=== PATIENT | female | born 1955 | race Caucasian/White ===

== ENCOUNTER 2018-05-30 18:26 | Emergency (ER) | payer OTHER, MEDICAID, SELFPAY ==
[2018-05-30 18:44] VITALS: BP 175/87; PULSE 98; RESP 15; TEMP 36.8; O2SAT 99; BMI 29.7
--- NOTE | 2018-05-30 18:44 | DI.RAD.S_ITS ---
PROCEDURE: XR ACUTE ABDOMEN SERIES INDICATIONS: Abdominal pain TECHNIQUE: One view chest and two views of the abdomen were acquired. COMPARISON: None. FINDINGS: Surgical changes and devices: Right upper quadrant surgical clips. Chest: Lungs are clear. Heart size is normal. No pleural effusions. No pneumoperitoneum. Abdomen: Large amount of stool. No bowel obstruction.. No suspicious calcifications. Visualized solid organ contours appear normal. Bones: No suspicious bony lesions. Lumbar degenerative disc disease. Mild bilateral hip joint degeneration. IMPRESSION: No bowel obstruction. Large amount of stool suggestive of constipation. Dictated by: Selvin Askew M.D. on 05/30/2018 at 20:35 Approved by: Selvin Askew M.D. on 05/30/2018 at 20:37
--- NOTE | 2018-05-30 19:20 | PC.NURSE ---
Pt states she has had low back pain on and off for the past 2-3 months. Unknown if she injured herself. She states she thought she had kidney stones. Denies any urinary symptoms. States she normally has bowel movements daily, but now it is down to once every 3 days. She is a type 2 diabetic and states her sugars have been high.
[2018-05-30] MEDS: KETOROLAC 15 MG/ML VIAL IV (19:28)
[2018-05-30] MEDS: SODIUM CHLORIDE 0.9% 1,000 ML 1000 ML IV ×2 (19:28→21:32)
[2018-05-30 19:33] LABS: Alanine Aminotransferase 36 IU/L (9-52); Albumin 4.2 g/dL (3.5-5.0); Albumin Globulin Ratio 1.8 (1.0-2.8); Alkaline Phosphatase 76 U/L (38-126); Aspartate Aminotransferase 25 IU/L (14-36); BUN Creatinine Ratio 26.3 (6-22); Bilirubin Total 0.4 mg/dL (0.2-1.3); Blood Urea Nitrogen 21 mg/dL (7-17); Calcium 9.7 mg/dL (8.4-10.2); Carbon Dioxide 25 mmol/L (22-32); Chloride 99 mmol/L (98-107); Estimated Glomerular Filt Rate > 60.0 mL/min (>60); Globulin 2.4 g/dL (1.7-4.1); Glucose 411 mg/dL (80-110); HEMOLYSIS 29 (0-50); Lipase 416 U/L (23-300); Sodium 136 mmol/L (137-145); Total Protein 6.6 g/dL (6.3-8.2)
[2018-05-30 20:22] LABS: Hematocrit 38.7 % (36-46); Hemoglobin 13.1 g/dL (12.0-16.0); Mean Corpuscular HGB Conc 33.9 % (30-36); Mean Corpuscular Hemoglobin 29.2 PG (26-34); Mean Corpuscular Volume 86.2 fL (80-100); Platelet Count 251 X10^3/uL (150-400); Red Blood Cell Count 4.49 X10^6/uL (4.0-5.2); Red Cell Distribution Width 13.2 % (11.6-14.8); White Blood Cell Count 8.6 X10^3/uL (4.5-11.0)
[2018-05-30 20:24] LABS: Add Manual Diff / Slide Review YES
[2018-05-30 20:32] VITALS: BP 116/72; PULSE 78; RESP 18; TEMP 36.4; O2SAT 100
[2018-05-30] MEDS: INSULIN REGULAR 100 UNIT/ML 3 ML VIAL SUBCUT (20:51)
--- NOTE | 2018-05-30 21:11 | DI.CT.S_ITS ---
PROCEDURE: CT KIDNEY URETER BLADDER (KUB) INDICATIONS: severe flank pain, hematuria TECHNIQUE: Noncontrast 5 mm thick sections acquired from the diaphragms to the symphysis. 5 mm thick coronal and sagittal reformats were then performed. For radiation dose reduction, the following was used: automated exposure control, adjustment of mA and/or kV according to patient size. COMPARISON: None. FINDINGS: Image quality: Excellent. Lung bases: Lung bases are clear. Heart size is normal. Urinary system: Both kidneys are normal in size. Subcentimeter right posterior cortical lesion, technically nonspecific in the absence of IV contrast. No kidney stones. No hydronephrosis or perinephric fat stranding. There are several bilateral pelvic phleboliths are seen in the region of the distal ureters however no definite intraluminal calcification is seen. Both ureters appear non-dilated throughout their expected courses. Bladder wall thickness is normal; no calcified bladder stones. Other solid organs: Liver is normal in size. Gallbladder surgically absent. Pancreas is normal in contours. Spleen is normal in size. No adrenal nodules. Peritoneum and bowel: Unenhanced bowel loops demonstrate normal wall thickness and caliber. No free fluid or air. The rectum is grossly unremarkable. Appendix is normal. Nodes and vessels: No retroperitoneal or mesenteric adenopathy by size criteria. Aorta and inferior vena cava are normal in caliber. Abdominal wall: No ventral hernias. Pelvis: No free pelvic fluid. No inguinal hernias or adenopathy. Bones: No suspicious bony lesions. No vertebral body compression fractures. IMPRESSION: No urolithiasis or evidence of urinary obstruction. No acute abnormality identified. Normal appendix. Dictated by: Selvin Askew M.D. on 05/30/2018 at 21:31 Approved by: Selvin Askew M.D. on 05/30/2018 at 21:36
--- NOTE | 2018-05-30 21:40 | ED_ITS ---
HPI - Female Genitourinary General Chief complaint: Urogenital-Female Stated complaint: THINKS SHE HAS KIDNEY STONES Time Seen by Provider: 05/30/18 18:38 Source: patient Mode of arrival: ambulatory Limitations: no limitations History of Present Illness HPI Narrative: Patient presents to the emergency department today with a chief complaint of right flank pain for the past month. She states it is worse when she moves and improves with rest. She denies any specific injury. She has had no fever or chills. She denies any rash nor urinary complaints such as dysuria , frequency or urgency. She denies nausea or vomiting but does state she has had decreased bowel movements for the past few days Onset (ago): month(s) Female Urogenital Radiation: R Flank Severity: moderate Related Data Allergies Allergy/AdvReac Type Severity Reaction Status Date / Time No Known Drug Allergies Allergy Verified 05/30/18 18:44 Review of Systems Review of Systems All systems reviewed & are unremarkable except as noted in HPI and below Constitutional Denies chills, Denies fever(s), Denies lethargy and Denies weakness Eyes Denies change in vision, Denies eye discharge, Denies irritation and Denies loss of vision ENT Ears, Nose, Mouth, and Throat: Denies change in voice, Denies neck pain and Denies sore throat Cardiovascular Denies chest pain, Denies irregular heart rhythm, Denies lightheadedness, Denies palpitations, Denies dyspnea, Denies dyspnea on exertion and Denies orthopnea Respiratory Denies cough, Denies dyspnea, Denies dyspnea on exertion and Denies wheezing Gastrointestinal Gastrointestinal: Denies abdominal pain, Denies change in bowel habits, Denies diarrhea, Denies nausea and Denies vomiting Genitourinary Denies hematuria, Denies flank pain, Denies urinary incontinence and Denies urinary urgency Musculoskeletal Denies neck pain Integumentary/Breasts Denies pruritus, Denies erythema, Denies rash and Denies wounds Neurologic Denies confusion, Denies loss of vision and Denies weakness Psychiatric Denies anxiety, Denies confusion, Denies depression, Denies homicidal ideation and Denies suicidal ideation Endocrine Denies palpitations Hematologic/Lymphatic Denies easy bruising Allergic/Immunologic Denies wheezing PFSH Social History Smoking Status: Former smoker Exam Initial Vital Signs Initial Vital Signs: Vital Signs Temperature 98.2 F 05/30/18 18:44 Pulse Rate 98 H 05/30/18 18:44 Respiratory Rate 15 05/30/18 18:44 Blood Pressure 175/87 H 05/30/18 18:44 Pulse Oximetry 99 05/30/18 18:44 Course Orders Ordered: ED Orders 05/30/18 18:44 XR acute abdomen series Stat 05/30/18 19:14 Comprehensive Metabolic Panel Stat Lipase Stat 05/30/18 20:10 Complete Blood Count AUTO DIFF Stat 05/30/18 21:11 CT kidney ureter bladder (KUB) Stat Discontinued Medications Sodium Chloride (Normal Saline 0.9%) 1,000 mls @ 1,000 mls/hr IV BOLUS ONE Stop: 05/30/18 19:43 Last Infusion: 05/30/18 21:11 Dose: 0 mls/hr Admin: 05/30/18 19:28 Dose: 1,000 mls/hr Sodium Chloride (Normal Saline 0.9%) 1,000 mls @ 1,000 mls/hr IV BOLUS ONE Stop: 05/30/18 21:44 Last Infusion: 05/30/18 22:47 Dose: 0 mls/hr Admin: 05/30/18 21:32 Dose: 1,000 mls/hr Insulin Human Regular (Humulin R) 5 unit SUBCUT NOW ONE Stop: 05/30/18 20:46 Last Admin: 05/30/18 20:51 Dose: 5 unit Ketorolac Tromethamine (Toradol) 15 mg IV NOW ONE Stop: 05/30/18 18:46 Last Admin: 05/30/18 19:28 Dose: 15 mg Vital Signs - 8 hr 05/30/18 18:44 05/30/18 20:32 05/30/18 21:51 Temperature 98.2 F 97.6 F Pulse Rate 98 H 78 75 Respiratory Rate 15 18 16 Blood Pressure 175/87 H Blood Pressure [Right Arm] 116/72 132/76 H Pulse Oximetry 99 100 97 05/30/18 22:30 Temperature 98.3 F Pulse Rate 75 Respiratory Rate 20 Blood Pressure Blood Pressure [Right Arm] 115/96 H Pulse Oximetry 97 MDM - Female Genitourinary Differential Diagnosis Likely urinary tract infection, cervicitis and vaginitis Medical Records Attestation: I reviewed the patient's medical records. Lab Data Result diagrams: 05/30/18 20:10 05/30/18 19:14 Lab Results 05/30/18 05/30/18 Range/Units 19:14 20:10 WBC 8.6 (4.5-11.0) X10^3/uL RBC 4.49 (4.0-5.2) X10^6/uL Hgb 13.1 (12.0-16.0) g/dL Hct 38.7 (36-46) % MCV 86.2 (80-100) fL MCH 29.2 (26-34) PG MCHC 33.9 (30-36) % RDW 13.2 (11.6-14.8) % Plt Count 251 (150-400) X10^3/uL Neut % (Auto) Not Reportable Lymph % (Auto) Not Reportable Andrew % (Auto) Not Reportable Eos % (Auto) Not Reportable Baso % (Auto) Not Reportable Total Counted 100 Seg Neutrophils % 42.0 (38-70) % Lymphocytes % (Manual) 49.0 H (25-45) % Monocytes % (Manual) 7.0 (2-11) % Eosinophils % (Manual) 1.0 L (2-4) % Basophils % (Manual) 1.0 (0-1) % Neutrophils # (Manual) 3612 (2423-5584) /uL RBC Morphology Normal morphology Sodium 136 L (137-145) mmol/L Potassium 4.0 (3.4-5.1) mmol/L Chloride 99 (98-107) mmol/L Carbon Dioxide 25 (22-32) mmol/L BUN 21 H (7-17) mg/dL Creatinine 0.80 (0.52-1.04) mg/dL Estimated GFR > 60.0 (>60) mL/min BUN/Creatinine Ratio 26.3 H (6-22) Glucose 411 H (80-110) mg/dL Calcium 9.7 (8.4-10.2) mg/dL Total Bilirubin 0.4 (0.2-1.3) mg/dL AST 25 (14-36) IU/L ALT 36 (9-52) IU/L Alkaline Phosphatase 76 (38-126) U/L Total Protein 6.6 (6.3-8.2) g/dL Albumin 4.2 (3.5-5.0) g/dL Globulin 2.4 (1.7-4.1) g/dL Albumin/Globulin Ratio 1.8 (1.0-2.8) Lipase 416 H (23-300) U/L Imaging Data CT scan - abdomen: Radiologist's impression: PROCEDURE: CT KIDNEY URETER BLADDER (KUB) INDICATIONS: severe flank pain, hematuria TECHNIQUE: Noncontrast 5 mm thick sections acquired from the diaphragms to the symphysis. 5 mm thick coronal and sagittal reformats were then performed. For radiation dose reduction, the following was used: automated exposure control, adjustment of mA and/or kV according to patient size. COMPARISON: None. FINDINGS: Image quality: Excellent. Lung bases: Lung bases are clear. Heart size is normal. Urinary system: Both kidneys are normal in size. Subcentimeter right posterior cortical lesion, technically nonspecific in the absence of IV contrast. No kidney stones. No hydronephrosis or perinephric fat stranding. There are several bilateral pelvic phleboliths are seen in the region of the distal ureters however no definite intraluminal calcification is seen. Both ureters appear non-dilated throughout their expected courses. Bladder wall thickness is normal; no calcified bladder stones. Other solid organs: Liver is normal in size. Gallbladder surgically absent. Pancreas is normal in contours. Spleen is normal in size. No adrenal nodules. Peritoneum and bowel: Unenhanced bowel loops demonstrate normal wall thickness and caliber. No free fluid or air. The rectum is grossly unremarkable. Appendix is normal. Nodes and vessels: No retroperitoneal or mesenteric adenopathy by size criteria. Aorta and inferior vena cava are normal in caliber. Abdominal wall: No ventral hernias. Pelvis: No free pelvic fluid. No inguinal hernias or adenopathy. Bones: No suspicious bony lesions. No vertebral body compression fractures. IMPRESSION: No urolithiasis or evidence of urinary obstruction. No acute abnormality identified. Normal appendix. Dictated by: Selvin Askew M.D. on 05/30/2018 at 21:31 Approved by: Selvin Askew M.D. on 05/30/2018 at 21:36 Chest x-ray: Attestation: I personally reviewed and interpreted this imaging study as follows: My impression: large amount of stool Radiologist's impression: PROCEDURE: XR ACUTE ABDOMEN SERIES INDICATIONS: Abdominal pain TECHNIQUE: One view chest and two views of the abdomen were acquired. COMPARISON: None. FINDINGS: Surgical changes and devices: Right upper quadrant surgical clips. Chest: Lungs are clear. Heart size is normal. No pleural effusions. No pneumoperitoneum. Abdomen: Large amount of stool. No bowel obstruction.. No suspicious calcifications. Visualized solid organ contours appear normal. Bones: No suspicious bony lesions. Lumbar degenerative disc disease. Mild bilateral hip joint degeneration. IMPRESSION: No bowel obstruction. Large amount of stool suggestive of constipation. Dictated by: Selvin Askew M.D. on 05/30/2018 at 20:35 Approved by: Selvin Askew M.D. on 05/30/2018 at 20:37 Discharge Plan Departure Patient Disposition: Home, Self-Care Clinical Impression: Acute flank pain, Constipation, Acute hyperglycemia Discharge Date/Time: 05/30/18 22:47 Interventions: ED Discharge Assessment Last Done: 05/30/18 22:47 Instructions: DI for Flank Pain Activity Restrictions/Additional Instructions: *You have been diagnosed with [ chronic flank pain, constipation ] *What to do: *Take medications as directed: Please double your Glyburide from 2.5mg PO daily to 5mg PO daily *Follow up with your primary care provider in 2-3 days, call for an appointment. Let them know you were seen in the Emergency Department and that we ask that you be seen in follow up *Return to ER if you should have any new, worsening or concerning symptoms , such as [worsening pain, fever over 101 F chills, vomiting, or any other bothersome symptoms] Referrals: Ariel Lopez MD [Primary Care Provider] -
[2018-05-30 21:45] LABS: Neutrophils Absolute Manual 3612 /uL (3000-5900); RBC Morphology Normal Morphology; Total Cells Counted 100
[2018-05-30 21:51] VITALS: BP 132/76; PULSE 75; RESP 16; O2SAT 97
[2018-05-30 22:30] VITALS: BP 115/96; PULSE 75; RESP 20; TEMP 36.8; O2SAT 97
== END 2018-05-30 22:47 | disposition home or self-care (01) ==
PROVIDERS: Emergency Provider Emergency Medicine; PCP Family Medicine
DX: K59.00 Constipation, unspecified (principal); R10.9 Unspecified abdominal pain; R73.9 Hyperglycemia, unspecified
CPT/HCPCS: 36415; 36591; 74022; 74176; 80053; 81003; 82962; 83690; 85025; 96361; 96372; 96374; 99283; 99284; J1885

== ENCOUNTER 2018-09-24 12:15 | Emergency (ER) | payer OTHER, MEDICAID, SELFPAY ==
[2018-09-24 12:21] VITALS: BMI 27.8
[2018-09-24 12:23] VITALS: BP 143/83; PULSE 88; RESP 17; TEMP 36.4; O2SAT 95
--- NOTE | 2018-09-24 12:27 | ED_ITS ---
HPI - Wound/Laceration <Falguni Pollard PA-C - Last Filed: 09/24/18 13:33> General Chief Complaint: Wound/Laceration Stated Complaint: UPPER THIGH ABSCESS Time Seen by Provider: 09/24/18 12:27 Source: patient Mode of arrival: ambulatory Limitations: no limitations History of Present Illness HPI narrative: This 63-year-old female comes to ED due to left thigh abscess. She states that she started to have pain and redness 1 week ago. She began to have more fluctuance and swelling, making it difficult for her to walk, so she went to another local ED 2 days ago where this was drained and packed. She was started on cephalexin and Bactrim, which she has been on for less than 48 hr. She states that the wound feels more hard now and that is mainly what concerned her. She that it is hard for her to tell for sure whether any more red as it is a difficult location her to see. Maybe duskier in color. She states that has not had any fever all along. She states that the pain is actually better now, feeling more lower on her leg (had difficulty walking before due to pain), and will notice more with sitting and pressure on the area. She thinks that it was draining a little bit at 1st, not today. She denies any other new symptoms or complaints. She states she came here mainly due to not being able to get in with her PCP. Related Data Home Medications Medication Instructions Recorded Confirmed atorvastatin 80 mg PO QPM 09/24/18 09/24/18 cephalexin 500 mg PO Q6H 09/24/18 09/24/18 fenofibrate 160 mg PO QPM 09/24/18 09/24/18 hydrocodone-acetaminophen 1 - 2 tab PO Q6H PRN 09/24/18 09/24/18 insulin glargine [Lantus Solostar 20 units SUBCUT QPM 09/24/18 09/24/18 U-100 Insulin] metformin 1,000 mg PO BID 09/24/18 09/24/18 sulfamethoxazole-trimethoprim 1 tab PO BID 09/24/18 09/24/18 venlafaxine 150 mg PO QPM 09/24/18 09/24/18 Allergies Allergy/AdvReac Type Severity Reaction Status Date / Time No Known Drug Allergies Allergy Verified 09/24/18 12:21 Review of Systems <Falguni Pollard PA-C - Last Filed: 09/24/18 13:33> Review of Systems All systems reviewed & are unremarkable except as noted in HPI and below PFSH <Falguni Pollard PA-C - Last Filed: 09/24/18 13:33> Comment: Forty-six pack-years tobacco, now vaps Exam <MICHELLE Camejo Last Filed: 09/24/18 13:33> Narrative Exam Narrative: GENERAL APPEARANCE: Patient sitting comfortably, in no distress. LUNGS: Clear to auscultation bilaterally. HEART: Rate and rhythm regular without murmur, normal S1 and S2, no S3 or S4. DERMATOLOGIC: Left medial thigh there is a small closed incision with 2-3 cm of surrounding induration, and patchy erythema extending up to 8-9 cm beyond that on the posterior medial thigh, all mildly warm to touch. There is an area of clearing proximal to the incision. Erythema is not circumferential and limited to medial and posterior thigh. Tender to touch over indurated areas. No fluctuance. Erythema does not extend to the groin MUSCULOSKELETAL: Normal range of motion of left hip and knee NEUROVASCULAR: Sensation is grossly intact, left pedal pulses 2+ Initial Vital Signs Initial Vital Signs: Vital Signs Temperature 97.5 F L 09/24/18 12:23 Pulse Rate 88 09/24/18 12:23 Respiratory Rate 17 09/24/18 12:23 Blood Pressure 143/83 H 09/24/18 12:23 Pulse Oximetry 95 09/24/18 12:23 <Efrain Gupta DO - Last Filed: 09/24/18 19:32> Initial Vital Signs Initial Vital Signs: Vital Signs Temperature 97.5 F L 09/24/18 12:23 Pulse Rate 88 09/24/18 12:23 Respiratory Rate 17 09/24/18 12:23 Blood Pressure 143/83 H 09/24/18 12:23 Pulse Oximetry 95 09/24/18 12:23 Course <Falguni Pollard PA-C - Last Filed: 09/24/18 13:33> Additional Information: This patient has been on antibiotics for less than 48 hr. Received notes from 09/22 visit and Gram stain shows growth of few gram- positive organisms, no identification or sensitivities yet. There is no new fluctuance. She does have some induration. Her pain is better and she is afebrile. There is no circumferential erythema. Advised to continue antibiotics and we have scheduled her for a follow-up with her PCP for recheck tomorrow afternoon. Vital Signs - 8 hr 09/24/18 12:23 09/24/18 13:16 Temperature 97.5 F L Pulse Rate 88 80 Respiratory Rate 17 16 Blood Pressure [Right Arm] 143/83 H 131/77 Pulse Oximetry 95 96 <Efrain Gupta DO - Last Filed: 09/24/18 19:32> Vital Signs - 8 hr 09/24/18 12:23 09/24/18 13:16 Temperature 97.5 F L Pulse Rate 88 80 Respiratory Rate 17 16 Blood Pressure [Right Arm] 143/83 H 131/77 Pulse Oximetry 95 96 Discharge Plan Departure Patient Disposition: Home Clinical Impression: Cellulitis and abscess of lower extremity Discharge Date/Time: 09/24/18 13:20 Interventions: ED Discharge Assessment Last Done: 09/24/18 13:20 Instructions: DI for Cellulitis -- Adult Activity Restrictions/Additional Instructions: Please return as we talked about if you have acutely worsening symptoms such as severe pain, swelling, or more redness, or new symptoms such as fever. I have outlined the margins of the redness for you so that you will be able to watch it more easily). Please continue the 2 antibiotics that you have started, as it usually takes about 72 hr to determine how you are responding to this. Please apply a hot pack (i.e. hot washcloth) every few hours for about 10 minutes to encourage any remaining pus to drain. You have a follow up appointment with Dr. Lopez's office tomorrow at 2:45 Prescriptions: No Action metformin 500 mg tablet 1,000 mg PO BID RF: 0 atorvastatin 80 mg tablet 80 mg PO QPM RF: 0 hydrocodone-acetaminophen 5-325 mg tablet 1 - 2 tab PO Q6H PRN (Reason: pain) RF: 0 venlafaxine 150 mg capsule,extended release 24hr 150 mg PO QPM RF: 0 sulfamethoxazole-trimethoprim 800-160 mg tablet 1 tab PO BID RF: 0 cephalexin 500 mg capsule 500 mg PO Q6H RF: 0 fenofibrate 160 mg tablet 160 mg PO QPM RF: 0 insulin glargine [Lantus Solostar U-100 Insulin] 100 unit/mL (3 mL) insulin pen 20 units subcut QPM RF: 0 Referrals: Ariel Lopez MD [Primary Care Provider] - <Efrain Gupta DO - Last Filed: 09/24/18 19:32> Cosign ED Attending Nazature Attestation: I was immediately available in the department for consultation. Documentation has been reviewed. I agree with assessment and plan.
--- NOTE | 2018-09-24 13:06 | PC.NURSE ---
pt reports left inner thigh, abscess for one week, evaluated and drained at [facility] 2 days ago, on keflex and bactrim ds , felt not better, concern that it has moved, there is a firmness lower incision sites. on arrival, left inner thigh with redness, 8x8 cm in size firmness to palpate, distal cms intact. denies fever,chills,nausea or vomiting. pt states, packing came off on friday.
[2018-09-24 13:16] VITALS: BP 131/77; PULSE 80; RESP 16; O2SAT 96
== END 2018-09-24 13:20 | disposition home or self-care (01) ==
PROVIDERS: Emergency Provider Internal Medicine; PCP Family Medicine
DX: L03.119 Cellulitis of unspecified part of limb (principal); L02.416 Cutaneous abscess of left lower limb
CPT/HCPCS: 99282; 99283

== ENCOUNTER 2023-04-14 08:31 | Emergency (ER) | payer MEDICARE, MEDICAID, SELFPAY ==
[2023-04-14] VITALS (11 sets, daily range): BP systolic 134–176; BP diastolic 85–100; PULSE 18–93; RESP 13–27; TEMP 36.6; O2SAT 96–100; BMI 26.7
--- NOTE | 2023-04-14 08:51 | DI.RAD.S_ITS ---
PROCEDURE: XR CHEST 1V INDICATIONS: chest pain TECHNIQUE: One view of the chest was acquired. COMPARISON: [facility], , CHEST 2 VIEW, 10/27/2012, 10:56. FINDINGS: Surgical changes and devices: None. Lungs and pleura: Lungs are clear. No pleural effusions or pneumothorax. Mediastinum: Mediastinal contours appear normal. Heart size is normal. Bones and chest wall: No suspicious bony lesions. Overlying soft tissues appear unremarkable. IMPRESSION: No acute cardiopulmonary disease. Dictated by: Selene Enciso M.D. on 04/14/2023 at 9:12 Approved by: Selene Enciso M.D. on 04/14/2023 at 9:17
--- NOTE | 2023-04-14 09:21 | ED_ITS ---
HPI - Extremity Problem General Chief complaint: Extremity Problem,Nontraumatic Stated complaint: pain RT shoulder/back into neck T-3 Time Seen by Provider: 04/14/23 09:21 Source: patient Mode of arrival: Ambulatory Limitations: no limitations History of Present Illness HPI Narrative: This is a 67-year-old female with diabetes, hypertriglyceridemia last check was less than 170 and her triglycerides, hypertension, mood disorder who presents with increased cough for the past 3 days, right shoulder trapezius pain. Patient states couple weeks ago that her whole family had upper respiratory infection, she still has some nasal congestion. Patient has not had any fevers. She states she was having some lower back discomfort which she related to her frequent coughing her neighbor gave her some ?healing hands? that helps but the pain sort of radiated up towards her shoulder. She states cough seems to make it more painful. Movement does not seem to bother it but direct palpation does. No rash or skin changes to that area. She states she is had productive green sputum for the past 3 days. She occasionally has some shortness of breath with exertion but not always. She states that has been longstanding and not worsening. She states she will occasionally wake up and threw up 1st thing in the morning but not every day. No changes with bowel movements. No swelling in her extremities. She notes she is had frequency urination and had dysuria urgency took some azo for several days and the dysuria resolved but her frequency has persisted. Patient is on medications including insulin for her diabetes, she had her Wellbutrin switched to Prozac, atorvastatin, fenofibrate for hypertriglyceridemia states her triglycerides were 2000 when she 1st started medications have been in the [address] range since then. She is also on Lisinopril, Prozac, hydroxyzine. She has never required an inhaler. She states she did use her neighbors but did not notice a lot of change. Patient states she is had a prior cholecystectomy, x2 and colonoscopy. She states she is been told to stay away from ibuprofen because of her medical issues. No known other drug allergies. She quit tobacco 8 years ago but still vapes. No alcohol, no illicit. Patient's primary car is [employer] that is [employer]. She had a stress test 16 years ago before she moved to the area. Related Data Home Medications Medication Instructions Recorded Confirmed atorvastatin 80 mg tablet 80 mg PO QPM 09/24/18 09/24/18 cephalexin 500 mg capsule 500 mg PO Q6H 09/24/18 09/24/18 fenofibrate 160 mg tablet 160 mg PO QPM 09/24/18 09/24/18 hydrocodone 5 mg-acetaminophen 325 1 - 2 tab PO Q6H PRN pain 09/24/18 09/24/18 mg tablet insulin glargine 100 unit/mL (3 20 units SUBCUT QPM 09/24/18 09/24/18 mL) subcutaneous pen metformin 500 mg tablet 1,000 mg PO BID 09/24/18 09/24/18 sulfamethoxazole 800 1 tab PO BID 09/24/18 09/24/18 mg-trimethoprim 160 mg tablet venlafaxine 150 mg 150 mg PO QPM 09/24/18 09/24/18 capsule,extended release 24 hr Previous Rx's Medication Instructions Recorded albuterol sulfate 90 mcg/actuation 2 inh inhalation Q4H PRN shortness 04/14/23 breath activated powder inhaler of breath or wheezing #1 ea azithromycin 250 mg tablet See Rx Instructions PO .COMPLEX #6 04/14/23 tabs prednisone 20 mg tablet 40 mg PO DAILY #10 tabs 04/14/23 Allergies Allergy/AdvReac Type Severity Reaction Status Date / Time No Known Drug Allergies Allergy Verified 09/24/18 12:21 Review of Systems Review of Systems ROS Unobtainable: All systems reviewed & are unremarkable except as noted in HPI and below Patient History Medical History Diabetes mellitus, insulin dependent (IDDM), controlled Hyperlipidemia Hypertriglyceridemia Surgical History History of Status post cholecystectomy Social History Smoking Status: Former smoker Tobacco: How many years used: 48 Smoking Status: Former smoker alcohol intake frequency: other Substance Use Type: does not use Exam Narrative Exam Narrative: GENERAL: Alert and oriented x three, female in mild distress. HEENT: Head normocephalic, atraumatic, EOMI, pupils reactive, face symmetric, moist mucous membranes NECK: Supple, full range of motion CARDIOVASCULAR: Regular rate and rhythm without murmurs, rubs or gallops. RESPIRATORY: Breath sounds equal bilaterally, no wheezes rales or rhonchi. ABDOMEN: Soft, nontender. Normoactive bowel sounds all 4 quadrants. No guarding or rebound, rigidity, no mass : No CVA tenderness EXTREMITIES: Normal range of motion, no clubbing or edema. Neurovascularly intact BACK: No cervical, thoracic or lumbar vertebral point tenderness. Patient has normal range of motion. Patient's gait is normal. Patient does have point tenderness over the trapezius muscle and medial to the scapula, no bony tenderness. There is some muscle tightness. Patient has full range of motion at the shoulder and back. No rash or skin changes. No lumps or other changes appreciated.. Muscle strength is 5/5 in upper extremities, DTRs are 2/4 and low er extremities. Dorsalis pedis and tibialis pulses are 2+ and lower extremities. Sensation is intact in the lower extremities. NEUROLOGICAL: Cranial nerves II through XII grossly intact. Moving all extremities. Radial pulse 2+ bilateral upper extremity. SKIN: Warm, dry, no petechiae, no rashes or lesions noted. Initial Vital Signs Initial Vital Signs: Vital Signs Temperature 97.9 F 04/14/23 08:37 Pulse Rate 18 L 04/14/23 08:37 Respiratory Rate 16 04/14/23 08:37 Blood Pressure 134/94 H 04/14/23 08:37 Pulse Oximetry 99 04/14/23 08:37 Oxygen Delivery Method Room Air 04/14/23 08:37 Course Orders Ordered: ED Orders 04/14/23 08:51 XR chest 1V Stat EKG-12 Lead Stat 04/14/23 09:25 Complete Blood Count AUTO DIFF Stat Comprehensive Metabolic Panel Stat Lipase Stat Magnesium Stat NT-proBNP (BNP-Adult 18+) Stat PTT Partial Thromboplastin [place] Stat Prothrombin Time INR Stat Troponin & CK Cardiac Panel Stat Vital Signs Vital signs: Vital Signs - 8 hr 04/14/23 11:30 04/14/23 11:30 Pulse Rate 78 Respiratory Rate 24 Blood Pressure 176/85 H Pulse Oximetry 96 Oxygen Delivery Method Room Air MDM - Extremity (Nontraumatic) Lab Data 04/14/23 09:25 04/14/23 09:25 Labs: Lab Results 04/14/23 04/14/23 04/14/23 Range/Units 09:25 09:25 09:25 WBC 15.6 H (4.5-11.0) X10^3/uL RBC 4.86 (4.0-5.2) X10^6/uL Hgb 13.7 (12.0-16.0) g/dL Hct 41.2 (36-46) % MCV 84.8 (80-100) fL MCH 28.3 (26-34) PG MCHC 33.4 (30-36) % RDW 14.5 (11.6-14.8) % Plt Count 337 (150-400) X10^3/uL Neut % (Auto) 72.9 (50-75) % Lymph % (Auto) 18.9 L (25-40) % [place] % (Auto) 7.1 (3-14) % Eos % (Auto) 0.4 L (2-4) % Baso % (Auto) 0.7 (0-2) % Neut # (Auto) 71206 H (3162-5265) /uL Lymph # (Auto) 2900 (3353-0828) /uL [place] # (Auto) 1100 H (0-900) /uL Eos # (Auto) 100 (0-450) /uL Baso # (Auto) 100 (0-100) /uL PT 11.9 (10.1-12.7) SECONDS INR 1.0 (0.9-1.3) APTT 32 (26-36) SECONDS Sodium 137 (137-145) mmol/L Potassium 3.8 (3.4-5.1) mmol/L Chloride 102 (98-107) mmol/L Carbon Dioxide 25 (22-32) mmol/L BUN 19 H (7-17) mg/dL Creatinine 0.61 (0.52-1.04) mg/dL Estimated GFR > 60 (>60) mL/min BUN/Creatinine Ratio 31.1 H (6-22) Glucose 156 H (80-110) mg/dL Calcium 9.8 (8.4-10.2) mg/dL Magnesium 1.3 L (1.6-2.3) mg/dL Total Bilirubin 0.8 (0.2-1.3) mg/dL AST 26 (14-36) IU/L ALT 24 (<35) IU/L Alkaline Phosphatase 53 (38-126) U/L Total Creatine Kinase 51 (30-135) U/L CK-MB (CK-2) TNP CK-MB (CK-2) Rel Index TNP Troponin I < 0.012 (0.01-0.034) ng/mL NT-Pro-B Natriuret Pep (<125) pg/mL Total Protein 8.1 (6.3-8.2) g/dL Albumin 4.7 (3.5-5.0) g/dL Globulin 3.4 (1.7-4.1) g/dL Albumin/Globulin Ratio 1.4 (1.0-2.8) Lipase 158 (23-300) U/L 04/14/23 Range/Units 09:25 WBC (4.5-11.0) X10^3/uL RBC (4.0-5.2) X10^6/uL Hgb (12.0-16.0) g/dL Hct (36-46) % MCV (80-100) fL MCH (26-34) PG MCHC (30-36) % RDW (11.6-14.8) % Plt Count (150-400) X10^3/uL Neut % (Auto) (50-75) % Lymph % (Auto) (25-40) % Hamilton % (Auto) (3-14) % Eos % (Auto) (2-4) % Baso % (Auto) (0-2) % Neut # (Auto) (0832-0442) /uL Lymph # (Auto) (7306-8787) /uL Hamilton # (Auto) (0-900) /uL Eos # (Auto) (0-450) /uL Baso # (Auto) (0-100) /uL PT (10.1-12.7) SECONDS INR (0.9-1.3) APTT (26-36) SECONDS Sodium (137-145) mmol/L Potassium (3.4-5.1) mmol/L Chloride (98-107) mmol/L Carbon Dioxide (22-32) mmol/L BUN (7-17) mg/dL Creatinine (0.52-1.04) mg/dL Estimated GFR (>60) mL/min BUN/Creatinine Ratio (6-22) Glucose (80-110) mg/dL Calcium (8.4-10.2) mg/dL Magnesium (1.6-2.3) mg/dL Total Bilirubin (0.2-1.3) mg/dL AST (14-36) IU/L ALT (<35) IU/L Alkaline Phosphatase (38-126) U/L Total Creatine Kinase (30-135) U/L CK-MB (CK-2) CK-MB (CK-2) Rel Index Troponin I (0.01-0.034) ng/mL NT-Pro-B Natriuret Pep 132 H (<125) pg/mL Total Protein (6.3-8.2) g/dL Albumin (3.5-5.0) g/dL Globulin (1.7-4.1) g/dL Albumin/Globulin Ratio (1.0-2.8) Lipase (23-300) U/L Urine Dip Bedside Urine Glucose Negative Bedside Urine Bilirubin - Negative Bedside Urine Ketone - Negative Urine Specific [place] 1.005 Bedside Urine Occult Blood - Negative Bedside Urine pH 6.0 Bedside Urine Protein - Negative Bedside Urine Urobilinogen - Negative Bedside Urine Nitrite - Negative Bedside Urine Leukocytes - Negative Esterase Imaging Data Chest x-ray: Radiologist's Impression: Renita Wolf??67??F??1955 ? Allergy/Adv: No Known Drug Allergies Close Chest X-Ray (Signed) Selene Enciso - 04/14/23 Abdomen/Pelvis CT (Signed) AzarGarySelvin - 05/30/18 Chest/Abdomen X-ray (Signed) Selvin Askew - 05/30/18 Launch?[address] [address] XRay Report Signed Patient: Renita Wolf MR#: [id number] : 1955 Acct:[id number] Age/Sex: 67 / F Date of Service: 04/14/23 Loc: ED Accession Number: [id number] ?? Procedure: XR chest 1V Ordering Provider: Eve Roque D.O. PROCEDURE:? XR CHEST 1V ? INDICATIONS:? chest pain ? TECHNIQUE:? One view of the chest was acquired.? ? COMPARISON:? [facility], , CHEST 2 VIEW, 10/27/2012, 10:56. ? FINDINGS:? ? Surgical changes and devices:? None.? ? Lungs and pleura:? Lungs are clear.? No pleural effusions or pneumothorax.? ? Mediastinum:? Mediastinal contours appear normal.? Heart size is normal.? ? Bones and chest wall:? No suspicious bony lesions.? Overlying soft tissues appear unremarkable.? ? IMPRESSION:? No acute cardiopulmonary disease.? ? ? Dictated by: Selene Enciso M.D. on 04/14/2023 at 9:12 ? ? Approved by: Selene Enciso M.D. on 04/14/2023 at 9:17?? ECG Data Attestation EKG: I personally reviewed and interpreted this ECG as follows: Prior ECG tracings: available for review Interpretation: Normal sinus rhythm incomplete right bundle, rate of 84, SC 152 QRS of 98 QTC 475. Patient has nonspecific change in V1 V2 no ST elevation or depression appreciated. Has new S-wave present from 2012 EKG. [facility] Narrative Medical decision making narrative: This is a 67-year-old female who presents with complaint of cough with green productive sputum, patient has been afebrile and thoracic right shoulder and back pain for several days. Patient does have a tobacco use history she smoked for about 40 years and continues to vape. Patient has had a cough about 3 weeks ago and has persisted and then started developing green productive sputum and states that the thoracic pain in her shoulder feels similar to when she had pneumonia some years ago. She does not have any new shortness of breath but sometimes has shortness of breath. She did use her neighbors inhaler she is unsure if it was helpful she was using it a coughing fit. Chest x-ray is negative for pneumonia, her symptoms she has reproducible pain in her thoracic area and I suspect more musculoskeletal cause of her thoracic pain today. Patient does have some cardiac risk factors, EKG, troponin and workup otherwise show mild leukocytosis, magnesium low, BNP is 132. Discussed with patient I would treat her for bronchitis with albuterol and steroids because of her tobacco use history did include azithromycin for atypical pneumonia not seen on x-ray. #116 - Avoidance of Antibiotic Treatment for Acute Bronchitis/Bronchiolitis [] The patient has acute bronchitis/bronchiolitis and antibiotics were not prescribed or dispensed today. [SATISFIES MIPS PERFORMANCE] [x] The patient has acute bronchitis/ bronchiolitis. Antibiotics were prescribed or dispensed because the patient meets one of the following: [MIPS PERFORMANCE EXCEPTION/EXCLUSION] [x] Patient has a medical reason for prescribing or dispensing an antibiotic. That reason is [COPD] (ex. COPD, bacterial infection, acute sinusitis, etc.). [] Patient is currently on antibiotics or has been in the last 30 days. [] Patient?s visit resulted in an inpatient admission. [] The patient has acute bronchitis/ bronchiolitis and antibiotics were prescribed or dispensed today. [DOES NOT SATISFY MIPS PERFORMANCE] Discharge Plan Departure Patient Disposition: Home Clinical Impression: Back pain, thoracic, Bronchitis Instructions: DI for Acute Bronchitis Activity Restrictions/Additional Instructions: Follow-up with your physician for recheck. Your urine today does not show any signs of infection. Your chest x-ray does not show obvious pneumonia but I would cover with your history of tobacco use. Can take Tylenol up to a 1000 mg every 6 hours as needed for muscle pain. Your imaging today does not show pneumonia but based on your symptoms I would treat you for bronchitis with a short course of steroids and antibiotic. You may take these until completed. You may use inhaler 2-4 puffs every 6 hours as needed for wheezing or cough. Prescription sent to [facility]. Please return for new or worsening symptoms, fevers, new or worsening chest pain, shortness of breath, lightheadedness or passing out, new swelling, new numbness, tingling or weakness, coughing up blood or other new or concerning symptoms. Prescriptions: New prednisone 20 mg tablet 40 mg PO DAILY Qty: 10 0RF azithromycin 250 mg tablet See Rx Instructions .ROUTE .COMPLEX Qty: 6 0RF Rx Instructions: For 250 mg dose pack: take 500 mg today (day 1), then 250 mg for 4 days (days 2-5) albuterol sulfate 90 mcg/actuation aerosol powdr breath activated 2 inh inhalation Q4H PRN (Reason: shortness of breath or wheezing) Qty: 1 0RF No Action metformin 500 mg tablet 1,000 mg PO BID Patient Comments: TK 2 TS PO QAM AND QHS atorvastatin 80 mg tablet 80 mg PO QPM hydrocodone-acetaminophen 5-325 mg tablet 1 - 2 tab PO Q6H PRN (Reason: pain) Patient Comments: TK 1 TO 2 TS PO Q 6 H PRN P venlafaxine 150 mg capsule,extended release 24hr 150 mg PO QPM Patient Comments: TK 1 C PO D sulfamethoxazole-trimethoprim 800-160 mg tablet 1 tab PO BID Patient Comments: TK 1 T PO BID cephalexin 500 mg capsule 500 mg PO Q6H Patient Comments: TK 1 C PO Q 6 H fenofibrate 160 mg tablet 160 mg PO QPM insulin glargine [Lantus Solostar U-100 Insulin] 100 unit/mL (3 mL) insulin pen 20 units subcut QPM Patient Comments: INJECT 30 UNITS SC DAILY IN THE EVENING. PATIENT STATES PHYSICIAN LOWERED TO 20 UNITS Referrals: Evelio Redd [Primary Care Provider] - Stand Alone Forms: Patient Portal/API
[2023-04-14 09:46] LABS: Add Manual Diff / Slide Review NO; Basophils Absolute Auto 100 /uL (0-100); Basophils Percent Auto 0.7 % (0-2); Eosinophils Absolute Auto 100 /uL (0-450); Eosinophils Percent Auto 0.4 % (2-4); Hematocrit 41.2 % (36-46); Hemoglobin 13.7 g/dL (12.0-16.0); Lymphocytes Absolute Auto 2900 /uL (1100-4500); Lymphocytes Percent Auto 18.9 % (25-40); Mean Corpuscular HGB Conc 33.4 % (30-36); Mean Corpuscular Hemoglobin 28.3 PG (26-34); Mean Corpuscular Volume 84.8 fL (80-100); Monocytes Absolute Auto 1100 /uL (0-900); Monocytes Percent Auto 7.1 % (3-14); Neutrophils Absolute Auto 11400 /uL (1500-7000); Neutrophils Percent Auto 72.9 % (50-75); Platelet Count 337 X10^3/uL (150-400); Red Blood Cell Count 4.86 X10^6/uL (4.0-5.2); Red Cell Distribution Width 14.5 % (11.6-14.8); White Blood Cell Count 15.6 X10^3/uL (4.5-11.0)
[2023-04-14 09:50] LABS: Prothrombin Time 11.9 SECONDS (10.1-12.7)
[2023-04-14 09:53] LABS: PTT Partial Thromboplastin Tim 32 SECONDS (26-36)
[2023-04-14 09:55] LABS: Alanine Aminotransferase 24 IU/L (<35); Albumin 4.7 g/dL (3.5-5.0); Albumin Globulin Ratio 1.4 (1.0-2.8); Alkaline Phosphatase 53 U/L (38-126); Aspartate Aminotransferase 26 IU/L (14-36); BUN Creatinine Ratio 31.1 (6-22); Bilirubin Total 0.8 mg/dL (0.2-1.3); Blood Urea Nitrogen 19 mg/dL (7-17); Calcium 9.8 mg/dL (8.4-10.2); Carbon Dioxide 25 mmol/L (22-32); Chloride 102 mmol/L (98-107); Creatine Kinase 51 U/L (30-135); Estimated Glomerular Filt Rate > 60 mL/min (>60); Globulin 3.4 g/dL (1.7-4.1); Glucose 156 mg/dL (80-110); HEMOLYSIS 20 (0-50); Lipase 158 U/L (23-300); Magnesium 1.3 mg/dL (1.6-2.3); Potassium 3.8 mmol/L (3.4-5.1); Sodium 137 mmol/L (137-145); Total Protein 8.1 g/dL (6.3-8.2)
[2023-04-14 10:03] LABS: NT-proBNP (BNP-Adult 18+) 132 pg/mL (<125)
[2023-04-14 10:06] LABS: Troponin I < 0.012 ng/mL (0.01-0.034)
== END 2023-04-14 11:39 | disposition home or self-care (01) ==
PROVIDERS: Emergency Provider Emergency Medicine; PCP Family Medicine
DX: M25.511 Pain in right shoulder (principal); M54.6 Pain in thoracic spine; J40 Bronchitis, not specified as acute or chronic; R03.0 Elevated blood-pressure reading, without diagnosis of hypertension; Z87.891 Personal history of nicotine dependence
CPT/HCPCS: 36415; 71045; 80053; 81003; 82550; 83690; 83735; 83880; 84484; 85025; 85610; 85730; 93005; 93010; 99284

== ENCOUNTER 2023-08-29 21:53 | Emergency (ER) | payer MEDICARE, MEDICAID, SELFPAY ==
[2023-08-29 21:59] VITALS: BP 187/91; PULSE 96; RESP 18; TEMP 35.5; O2SAT 98; BMI 26.9
--- NOTE | 2023-08-29 22:11 | ED.ANIMALBIT ---
HPI - Animal Bite General Chief Complaint: Animal Bite Stated Complaint: Cat inj Time Seen by Provider: 08/29/23 22:09 Source: patient Mode of arrival: Ambulatory History of Present Illness HPI narrative: 60-year-old female who is here for evaluation of a cat scratch to the back of her right hand. She states that it was her neighbor's cat. She tried to pick it up when the event happened. There is some swelling to the back of her right hand which he states is actually improved. She has not washed her hand. She is diabetic. Related Data Home Medications Medication Instructions Recorded Confirmed atorvastatin 80 mg tablet 80 mg PO QPM 09/24/18 09/24/18 cephalexin 500 mg capsule 500 mg PO Q6H 09/24/18 09/24/18 fenofibrate 160 mg tablet 160 mg PO QPM 09/24/18 09/24/18 hydrocodone 5 mg-acetaminophen 325 1 - 2 tab PO Q6H PRN pain 09/24/18 09/24/18 mg tablet insulin glargine 100 unit/mL (3 20 units SUBCUT QPM 09/24/18 09/24/18 mL) subcutaneous pen metformin 500 mg tablet 1,000 mg PO BID 09/24/18 09/24/18 sulfamethoxazole 800 1 tab PO BID 09/24/18 09/24/18 mg-trimethoprim 160 mg tablet venlafaxine 150 mg 150 mg PO QPM 09/24/18 09/24/18 capsule,extended release 24 hr Previous Rx's Medication Instructions Recorded albuterol sulfate 90 mcg/actuation 2 inh inhalation Q4H PRN shortness 04/14/23 breath activated powder inhaler of breath or wheezing #1 ea azithromycin 250 mg tablet See Rx Instructions PO .COMPLEX #6 04/14/23 tabs prednisone 20 mg tablet 40 mg (2 x 20 mg) PO DAILY #10 tabs 04/14/23 amoxicillin 875 mg-potassium 1 tab PO BID 5 days #10 tabs 08/29/23 clavulanate 125 mg tablet Allergies Allergy/AdvReac Type Severity Reaction Status Date / Time No Known Drug Allergies Allergy Verified 09/24/18 12:21 Review of Systems Constitutional Constitutional: Reports system reviewed and no additional complaints, except as documented Musculoskeletal Musculoskeletal: Reports system reviewed and no additional complaints, except as documented Integumentary/Breasts Skin/Breast: Reports system reviewed and no additional complaints, except as documented Neurologic Neurologic: Reports system reviewed and no additional complaints, except as documented Patient History Medical History Hypertriglyceridemia Hyperlipidemia Diabetes mellitus, insulin dependent (IDDM), controlled Surgical History History of Status post cholecystectomy Social History Smoking Status: Former smoker Tobacco: How many years used: 48 Smoking Status: Former smoker alcohol intake frequency: other Substance Use Type: does not use Exam Initial Vital Signs Initial Vital Signs: Vital Signs Temperature 96 F L 08/29/23 21:59 Pulse Rate 96 H 08/29/23 21:59 Respiratory Rate 18 08/29/23 21:59 Blood Pressure 187/91 H 08/29/23 21:59 Pulse Oximetry 98 08/29/23 21:59 Oxygen Delivery Method Room Air 08/29/23 21:59 Const General: cooperative and comfortable Skin Other: Patient has swelling to the dorsum of the right hand specifically over the MCP joint of the index middle and ring finger. If there are 2 small skin abrasions over this area. No active bleeding. Extrem Other: Swelling to the dorsum of the right hand Course Orders Ordered: Discontinued Medications Amoxicillin/Clavulanate Potassium (Amoxicillin/Clav 875/125 Mg) 1 tab PO NOW ONE Stop: 08/29/23 22:16 Last Admin: 08/29/23 22:21 Dose: 1 tab Documented By: RANDY Vital Signs Vital signs: Vital Signs - 8 hr 08/29/23 21:59 08/29/23 22:22 Temperature 96 F L Pulse Rate 96 H 84 Respiratory Rate 18 16 Blood Pressure 187/91 H 172/85 H Pulse Oximetry 98 97 Oxygen Delivery Method Room Air Room Air MDM - Animal Bite MDM Narrative Medical decision making narrative: The area was washed with soap and water here in the emergency department. I have low suspicion for foreign body. Given the location and nature of the wound and also the fact she is diabetic we will place the patient on antibiotics. She was given a 1st dose here in the emergency department a prescription was sent to the pharmacy of her choice. She was given return precautions. She expressed understanding and agreement. Discharge Plan Departure Patient Disposition: Home Clinical Impression: Cat scratch of right hand Instructions: DI for Cat Bite Activity Restrictions/Additional Instructions: You can wash your hands and use soap and water. Putting some ice over the area maybe helpful as well. Take the antibiotics as directed. Return to the emergency department for new or worsening symptoms. Prescriptions: New amoxicillin-pot clavulanate 875-125 mg tablet 1 tab PO BID 5 Days Qty: 10 0RF No Action metformin 500 mg tablet 1,000 mg PO BID Patient Comments: TK 2 TS PO QAM AND QHS atorvastatin 80 mg tablet 80 mg PO QPM hydrocodone-acetaminophen 5-325 mg tablet 1 - 2 tab PO Q6H PRN (Reason: pain) Patient Comments: TK 1 TO 2 TS PO Q 6 H PRN P venlafaxine 150 mg capsule,extended release 24hr 150 mg PO QPM Patient Comments: TK 1 C PO D sulfamethoxazole-trimethoprim 800-160 mg tablet 1 tab PO BID Patient Comments: TK 1 T PO BID cephalexin 500 mg capsule 500 mg PO Q6H Patient Comments: TK 1 C PO Q 6 H fenofibrate 160 mg tablet 160 mg PO QPM insulin glargine [Lantus Solostar U-100 Insulin] 100 unit/mL (3 mL) insulin pen 20 units subcut QPM Patient Comments: INJECT 30 UNITS SC DAILY IN THE EVENING. PATIENT STATES PHYSICIAN LOWERED TO 20 UNITS prednisone 20 mg tablet 40 mg PO DAILY Qty: 10 0RF azithromycin 250 mg tablet See Rx Instructions .ROUTE .COMPLEX Qty: 6 0RF Rx Instructions: For 250 mg dose pack: take 500 mg today (day 1), then 250 mg for 4 days (days 2-5) albuterol sulfate 90 mcg/actuation aerosol powdr breath activated 2 inh inhalation Q4H PRN (Reason: shortness of breath or wheezing) Qty: 1 0RF Referrals: Evelio Redd [Primary Care Provider] - Stand Alone Forms: Patient Portal/API
[2023-08-29] MEDS: AMOXICILLIN/CLAV 875/125 MG 1 TAB PO (22:21)
[2023-08-29 22:22] VITALS: BP 172/85; PULSE 84; RESP 16; O2SAT 97
== END 2023-08-29 22:30 | disposition home or self-care (01) ==
PROVIDERS: Emergency Provider Emergency Medicine; PCP Family Medicine
DX: S60.511A Abrasion of right hand, initial encounter (principal); W55.03XA Scratched by cat, initial encounter; Y93.89 Activity, other specified
CPT/HCPCS: 99283

== ENCOUNTER → 2024-07-01 16:19 | Outpatient (CLI) | payer OTHER, MEDICAID, SELFPAY ==
--- NOTE | 2024-07-01 16:21 | DI.RAD.S_ITS ---
PROCEDURE: XR LUMBAR SPINE 2-3V INDICATIONS: Back pain TECHNIQUE: 3 views of the lumbar spine were acquired. COMPARISON: None. FINDINGS: Bones: 5 [id number] vertebrae are present. Straightening of the normal lumbar lordosis. No vertebral body compression fractures. No suspicious bony lesions. There is multilevel facet arthropathy, worse at L4-5 and L5-S1. Multilevel disc height loss with degenerative endplate changes and spurring is present. Soft tissues: Overlying bowel gas pattern is normal. No suspicious soft tissue calcifications. Atherosclerotic vascular calcifications. Right upper quadrant surgical clips. IMPRESSION: Multilevel degenerative changes of the lumbar spine. Dictated by: Lucio Cedeno M.D. on 07/02/2024 at 14:47 Approved by: Lucio Cedeno M.D. on 07/02/2024 at 14:47
== END ==
PROVIDERS: PCP Family Medicine; Referring Provider Nurse Practitioner Family; Visit Provider Nurse Practitioner Family
DX: M47.816 Spondylosis without myelopathy or radiculopathy, lumbar region (principal); M47.817 Spondylosis without myelopathy or radiculopathy, lumbosacral region; M54.9 Dorsalgia, unspecified
CPT/HCPCS: 72100

== ENCOUNTER 2025-01-20 10:39 | Emergency (ER) | payer MEDICARE, MEDICAID, SELFPAY ==
[2025-01-20 10:54] VITALS: BP 177/93; PULSE 92; RESP 14; TEMP 36.5; O2SAT 98; BMI 26.3
[2025-01-20 14:05] VITALS: BP 183/99; PULSE 99; O2SAT 99
[2025-01-20 14:30] VITALS: BP 174/88; PULSE 94; O2SAT 98
--- NOTE | 2025-01-20 14:31 | ED_ITS ---
HPI - Psych General Chief Complaint: Psychiatric Symptoms Stated Complaint: Mental health concerns Time Seen by Provider: 01/20/25 14:02 Mode of arrival: Ambulatory History of Present Illness HPI Narrative: 69-year-old woman with a history of depression, question of ADHD, possible borderline personality disorder, urinary incontinence, increasing agitation, paranoia and frustration October. They have been following up with her primary care physician at [facility]. Recently decreased Prozac from 80 mg to 40 mg. Trying to decrease Adderall from 40 mg to 15 mg, recently added mirabegron for her urinary symptoms. Patient 1 point has been seeing a counselor but felt that the counselor thought she was ?a brat?, daughter mentioned that the counselors actual comments were closer towe need to help you find some more positive areas to focus on. Patient does not have a psychiatrist and has not had a psychiatrist comment on medication dosing. Patient is brought in by her daughter with concerns for increasing agitation, poor sleep increasing paranoia and worried about insurance issues that it is to the point where it is impacting activities of everyday living and consuming her entire thought process. Patient has no physical complaints such as fever, cough, chills, chest pain, shortness for breath, weight loss, weight gain, abdominal Related Data Home Medications Medication Instructions Recorded Confirmed atorvastatin 80 mg tablet 80 mg PO QPM 09/24/18 07/01/24 cephalexin 500 mg capsule 500 mg PO Q6H 09/24/18 07/01/24 fenofibrate 160 mg tablet 160 mg PO QPM 09/24/18 07/01/24 hydrocodone 5 mg-acetaminophen 325 1 - 2 tab PO Q6H PRN pain 09/24/18 07/01/24 mg tablet insulin glargine 100 unit/mL (3 20 units SUBCUT QPM 09/24/18 07/01/24 mL) subcutaneous pen metformin 500 mg tablet 1,000 mg PO BID 09/24/18 07/01/24 sulfamethoxazole 800 1 tab PO BID 09/24/18 07/01/24 mg-trimethoprim 160 mg tablet venlafaxine 150 mg 150 mg PO QPM 09/24/18 07/01/24 capsule,extended release 24 hr Previous Rx's Medication Instructions Recorded albuterol sulfate 90 mcg/actuation 2 inh inhalation Q4H PRN shortness 04/14/23 breath activated powder inhaler of breath or wheezing #1 ea azithromycin 250 mg tablet See Rx Instructions PO .COMPLEX #6 04/14/23 tabs prednisone 20 mg tablet 40 mg (2 x 20 mg) PO DAILY #10 tabs 04/14/23 quetiapine 25 mg tablet 25 - 50 mg (1 - 2 x 25 mg) PO 01/20/25 BEDTIME #60 tabs Allergies Allergy/AdvReac Type Severity Reaction Status Date / Time No Known Drug Allergies Allergy Verified 01/20/25 10:54 Review of Systems Review of Systems Narrative: Pertinent positive and negative findings as per HPI Patient History Medical History Hypertriglyceridemia Hyperlipidemia Diabetes mellitus, insulin dependent (IDDM), controlled Surgical History Status post cholecystectomy History of Social History Smoking Status: Current every day smoker Tobacco: How many years used: 48 Smoking Status: Current every day smoker tobacco type: vaping alcohol intake frequency: other Exam Initial Vital Signs Initial Vital Signs: Vital Signs Temperature 97.7 F 01/20/25 10:54 Pulse Rate 92 H 01/20/25 10:54 Respiratory Rate 14 01/20/25 10:54 Blood Pressure 177/93 H 01/20/25 10:54 Pulse Oximetry 98 01/20/25 10:54 Oxygen Delivery Method Room Air 01/20/25 10:54 General: Disheveled but in no acute distress HEENT: Moist mucous membranes, normal sclera with reactive pupils, Respiratory: Lungs are clear to auscultation, no wheezing no rales no rhonchi. Full and symmetrical air movement Cardiac: Regular rate and rhythm no murmurs no bruits Abdomen: Soft, nontender, good bowel tones, no flank pain Skin: Warm and dry, no rashes Neurologic: Grossly neurologically intact with no obvious asymmetries or abnormalities Extremities: No trauma, well perfused Psych: After a mg of oral Ativan she has calm somewhat, can focus is making eye contact, not quite as tangential and does not appear to be responding to internal stimuli. Prior to Ativan she was too agitated to meaningfully interact with Course Orders Ordered: ED Orders 01/20/25 11:06 Consult to SOFTWARE DEVELOPMENT PROJECT MANAGER - Environmental Services Aide Stat 01/20/25 17:05 CBC Auto Diff [Complete Blood Count AUTO DIFF] Stat CMP [Comprehensive Metabolic Panel] Stat TSH w/ Reflex to FT4 Stat Discontinued Medications Lorazepam (Lorazepam 0.5 Mg Tablet) 1 mg PO NOW ONE Stop: 01/20/25 15:37 Last Admin: 01/20/25 15:44 Dose: 1 mg Documented By: GREG Quetiapine Fumarate (Quetiapine 25 Mg Tablet) 25 mg PO NOW ONE Stop: 01/20/25 16:55 Last Admin: 01/20/25 16:59 Dose: 25 mg Documented By: GREG Vital Signs Vital signs: Vital Signs - 8 hr 01/20/25 10:54 01/20/25 14:05 01/20/25 14:05 Temperature 97.7 F Pulse Rate 92 H 99 H Respiratory Rate 14 Blood Pressure 177/93 H 183/99 H Pulse Oximetry 98 99 Oxygen Delivery Method Room Air MDM - Psych Lab Data 01/20/25 17:05 01/20/25 17:05 Labs: Lab Results 01/20/25 Range/Units 17:05 WBC 9.8 (4.5-11.0) X10^3/uL RBC 4.91 (4.0-5.2) X10^6/uL Hgb 13.9 (12.0-16.0) g/dL Hct 41.5 (36-46) % MCV 84.4 (80-100) fL MCH 28.2 (26-34) PG MCHC 33.4 (30-36) % RDW 14.2 (11.6-14.8) % Plt Count 367 (150-400) X10^3/uL Neut % (Auto) 67.2 (50-75) % Lymph % (Auto) 23.7 L (25-40) % [place] % (Auto) 7.6 (3-14) % Eos % (Auto) 0.9 L (2-4) % Baso % (Auto) 0.6 (0-2) % Neut # (Auto) 6600 (7733-3588) /uL Lymph # (Auto) 2300 (5792-3989) /uL [place] # (Auto) 700 (0-900) /uL Eos # (Auto) 100 (0-450) /uL Baso # (Auto) 100 (0-100) /uL Sodium 142 (137-145) mmol/L Potassium 3.5 (3.4-5.1) mmol/L Chloride 106 (98-107) mmol/L Carbon Dioxide 26 (22-32) mmol/L BUN 18 H (7-17) mg/dL Creatinine 0.70 (0.52-1.04) mg/dL Estimated GFR > 60 (>60) mL/min BUN/Creatinine Ratio 25.7 H (6-22) Glucose 96 (80-110) mg/dL Calcium 10.1 (8.4-10.2) mg/dL Total Bilirubin 0.6 (0.2-1.3) mg/dL AST 36 (14-36) IU/L ALT 25 (<35) IU/L Alkaline Phosphatase 53 (38-126) U/L Total Protein 7.6 (6.3-8.2) g/dL Albumin 4.6 (3.5-5.0) g/dL Globulin 3.0 (1.7-4.1) g/dL Albumin/Globulin Ratio 1.5 (1.0-2.8) TSH 1.34 (0.47-4.68) uIU/mL Urine Dip Bedside Urine Glucose Negative Bedside Urine Bilirubin - Negative Bedside Urine Ketone - Negative Urine Specific [place] 1.015 Bedside Urine Occult Blood - Negative Bedside Urine pH 6.0 Bedside Urine Protein - Negative Bedside Urine Urobilinogen - Negative Bedside Urine Nitrite - Negative Bedside Urine Leukocytes - Negative Esterase MDM Narrative Medical decision making narrative: CC: Increasing agitated Complicating co-morbidities: Depression, ADHD, borderline personality disorder, hypertension, diabetes Data collected from: patient, daughter Medical records reviewed: Primary care notes with medications and additional diagnoses are reviewed through epic Differential considered: Metabolic abnormality, medication interactions, hypomania, worsening anxiety Exam documented above, pertinent findings include: After Ativan, much more interactive and appropriate agrees to blood drawn further intervention Lab Test results independently reviewed as above. Pertinent findings: CBC is reassured Chemistries are unremarkable TSH is appropriate Consultations: Discussion with SOFTWARE DEVELOPMENT PROJECT MANAGER Treatments: Oral Ativan, 25 mg of oral Seroquel Re-evaluations: Patient is feeling much better, much more relaxed, much more focused appropriate and grounded after the dose of Seroquel and is quite pleased with suggestions Discussion: 69-year-old woman with increasing agitation over the last 3 months. After discussion and negotiation current recommendations will be -continue on 40 mg of Prozac -discontinue all Adderall -continue the mirabegron as it has been helping with the urinary incontinence -add 25 mg of Seroquel at bedtime, can increase to 50 if needed -continue with 0.1 mg of bedtime clonidine -consider finding a new counselor with whom she ?fits? ?a bit better -attempt to try to find a psychiatrist to help with medication management, SOFTWARE DEVELOPMENT PROJECT MANAGER has given a list of resources to the patient for counseling and psychiatry -this will all be messaged to her primary care physician with follow up already scheduled in approximately 3 weeks At this time, there is no evidence of obvious medical abnormality, patient is calmer willing to try these changes, she has not gravely disabled does have access to care and her daughter has been helping significantly. She is safe for discharge home Discharge Plan Departure Patient Disposition: Home Clinical Impression: Agitation, Anxiety Depression Qualifiers: Depression Type: unspecified Qualified Code(s): F32.A - Depression, unspecified Activity Restrictions/Additional Instructions: Thank you for coming in today. Your blood work was entirely reassuring with normal red blood cells, white blood cells, kidney function and thyroid studies. After discussion, 1 dose of Ativan as well as a dose of Seroquel I am going to recommend the following changes. -continue on 40 mg of Prozac -discontinue all Adderall -continue the mirabegron as it has been helping with the urinary incontinence -add 25 mg of Seroquel at bedtime, can increase to 50 if needed. [facility] -continue with 0.1 mg of bedtime clonidine -consider finding a new counselor with whom you ?fit? a bit better -attempt to try to find a psychiatrist to help with medication management, our social insurance administrator has given a list of resources to you for counseling and psychiatry. Do not get frustrated with making the calls, you will get a lot of not taking new patients or first appointment in months. -this will all be messaged to with follow up already scheduled in approximately [address] Elizondo is aware of each of these recommendations. If you find that you are getting worse or develop any new symptoms, please feel free to return to the emergency department for further evaluation. Prescriptions: New quetiapine 25 mg tablet 25 - 50 mg PO BEDTIME Qty: 60 1RF No Action metformin 500 mg tablet 1,000 mg PO BID Patient Comments: TK 2 TS PO QAM AND QHS atorvastatin 80 mg tablet 80 mg PO QPM hydrocodone-acetaminophen 5-325 mg tablet 1 - 2 tab PO Q6H PRN (Reason: pain) Patient Comments: TK 1 TO 2 TS PO Q 6 H PRN P venlafaxine 150 mg capsule,extended release 24hr 150 mg PO QPM Patient Comments: TK 1 C PO D sulfamethoxazole-trimethoprim 800-160 mg tablet 1 tab PO BID Patient Comments: TK 1 T PO BID cephalexin 500 mg capsule 500 mg PO Q6H Patient Comments: TK 1 C PO Q 6 H fenofibrate 160 mg tablet 160 mg PO QPM insulin glargine [Lantus Solostar U-100 Insulin] 100 unit/mL (3 mL) insulin pen 20 units subcut QPM Patient Comments: INJECT 30 UNITS SC DAILY IN THE EVENING. PATIENT STATES PHYSICIAN LOWERED TO 20 UNITS prednisone 20 mg tablet 40 mg PO DAILY Qty: 10 0RF azithromycin 250 mg tablet See Rx Instructions .ROUTE .COMPLEX Qty: 6 0RF Rx Instructions: For 250 mg dose pack: take 500 mg today (day 1), then 250 mg for 4 days (days 2-5) albuterol sulfate 90 mcg/actuation aerosol powdr breath activated 2 inh inhalation Q4H PRN (Reason: shortness of breath or wheezing) Qty: 1 0RF Referrals: Arjun Elizondo DO [Primary Care Provider] - Stand Alone Forms: Patient Portal/API/Survey
[2025-01-20] MEDS: LORazepam 0.5 MG TABLET 1 MG PO (15:44)
[2025-01-20] MEDS: QUETIAPINE 25 MG TABLET PO (16:59)
[2025-01-20 17:22] LABS: Add Manual Diff / Slide Review NO; Basophils Absolute Auto 100 /uL (0-100); Basophils Percent Auto 0.6 % (0-2); Eosinophils Absolute Auto 100 /uL (0-450); Eosinophils Percent Auto 0.9 % (2-4); Hematocrit 41.5 % (36-46); Hemoglobin 13.9 g/dL (12.0-16.0); Lymphocytes Absolute Auto 2300 /uL (1100-4500); Lymphocytes Percent Auto 23.7 % (25-40); Mean Corpuscular HGB Conc 33.4 % (30-36); Mean Corpuscular Hemoglobin 28.2 PG (26-34); Mean Corpuscular Volume 84.4 fL (80-100); Monocytes Absolute Auto 700 /uL (0-900); Monocytes Percent Auto 7.6 % (3-14); Neutrophils Absolute Auto 6600 /uL (1500-7000); Neutrophils Percent Auto 67.2 % (50-75); Platelet Count 367 X10^3/uL (150-400); Red Blood Cell Count 4.91 X10^6/uL (4.0-5.2); Red Cell Distribution Width 14.2 % (11.6-14.8); White Blood Cell Count 9.8 X10^3/uL (4.5-11.0)
[2025-01-20 17:27] LABS: Alanine Aminotransferase 25 IU/L (<35); Albumin 4.6 g/dL (3.5-5.0); Albumin Globulin Ratio 1.5 (1.0-2.8); Alkaline Phosphatase 53 U/L (38-126); Aspartate Aminotransferase 36 IU/L (14-36); BUN Creatinine Ratio 25.7 (6-22); Bilirubin Total 0.6 mg/dL (0.2-1.3); Blood Urea Nitrogen 18 mg/dL (7-17); Calcium 10.1 mg/dL (8.4-10.2); Carbon Dioxide 26 mmol/L (22-32); Chloride 106 mmol/L (98-107); Estimated Glomerular Filt Rate > 60 mL/min (>60); Glucose 96 mg/dL (80-110); HEMOLYSIS < 15 (0-50); Potassium 3.5 mmol/L (3.4-5.1); Sodium 142 mmol/L (137-145); Total Protein 7.6 g/dL (6.3-8.2)
--- NOTE | 2025-01-20 17:33 | CM.SWNOTE ---
ED COMMUNITY WORKER Assessment Note Patient is 69 y/o female who presents to the ED with daughter due to concern for patient's increasing heightened anxiety, agitation, poor sleep, concerns about insurance changes and paranoia in recent months. Patient's PCP is Dr. Elizondo at [facility]. Patient has [facility] MCR and Medicaid Spenddown insurance. Patient used to have Medicaid and has been very distraught about no longer having full Medicaid coverage. Patient has hx of Depression, Anxiety, there was question of ADHD and possible BPD. Patient had recent PCP appt in recent weeks where PCP decreased Adderall from 40mg to 15mg, decreased Prozac from 80mg to 40 mg and added 0.1mg of Clonidine at night time. COMMUNITY WORKER initially meets with patient and daughter in lobby and offers to meet with them in room 3 for privacy, they endorse that they can meet in lobby. Patient endorses consent for daughter to be present. Patient presents as A/Ox4, anxious, labile at times and presents with frustration. Patient states she takes rx as prescribed. Patient presents with perseveration and fixation on her insurance changes. Patient's daughter states it is all patient talks about and has talked about since October when her coverage changed. It is reported that patient gets social security and a pension, when patient had appt with [facility] recently the pension was added to patient's income which made patient ineligible for the Medicare savings programs and Medicaid, thus patient has had to pay for insurance premiums for [employer] insurance. Patient endorses she has been distraught about this, calling [facility], [facility] and her previous provider [facility] home care companion. Patient presents with paranoia that someone is out to get her and that they are doing this to her, patient presents as victimized. It is reported that patient's Medicare Premium is now taken out of patient's SS check. Patient resides alone in [place] with cat, patient has daughter and granddaughters that live nearby. Patient is independent with ADLs but has been impacted daily preservation of insurance concerns and changes. Per registration, patient is listed as active with Medicaid but when further investigated it states patient's Medicaid Spenddown. This is explained to patient but patient continues to be distraught. This COMMUNITY WORKER calls [facility] and leaves with Laura Tom to look into patient's medicaid status further, COMMUNITY WORKER leaves VM requesting return call. Patient is placed in room upon soonest available opportunity, patient continues with heightened anxiety and is offered Ativan, patient accepts Ativan PO. Patient presents as de-escalated and calmer 20 minutes after rx is administered. COMMUNITY WORKER receives VM and return call from Laura at [facility], and Laura reports that patient makes too much for Medicare Savings plans but patient can turn in acquired bills for Medicaid Spenddown of liability amount [id number] and patient can receive Medicaid coverage between Nov-April time frame, but Spenddown process will restart in May. COMMUNITY WORKER explains this to patient and daughter and they indicate understanding. COMMUNITY WORKER presents with empathy and understanding about the drastic change in coverage and frustration this caused. COMMUNITY WORKER provides patient with Medicaid Spenddown information, SHIBA information from [facility], Senior resource guide, lists of Psychiatrists and therapists that accept patient's [facility] insurance, and OT information. It is the opinion of this COMMUNITY WORKER that patient is safe to d/c to home upon medical clearance, COMMUNITY WORKER reviews this with ED provider Dr. Carvalho who indicates agreement and understanding. ED provider provides patient with Seroquel rx to try in ED, and recommends patient discontinue Adderall rx. Patient has upcoming PCP appt in 3 weeks. Plan: patient to d/c to home upon medical clearance, patient and daughter to f/u with resources provided, patient to seek MH provider and f/u with rx changes and PCP appt. CHARY Ambrosio
[2025-01-20 18:05] LABS: TSH w/ Reflex to FT4 1.34 uIU/mL (0.47-4.68)
[2025-01-20 18:20] VITALS: BP 136/72; PULSE 94; RESP 16; O2SAT 97
== END 2025-01-20 18:26 | disposition home or self-care (01) ==
PROVIDERS: Emergency Provider Emergency Medicine; PCP Family Medicine
DX: R45.1 Restlessness and agitation (principal); F41.9 Anxiety disorder, unspecified; F32.A Depression, unspecified
CPT/HCPCS: 36415; 80053; 81003; 84443; 85025; 99283

== ENCOUNTER → 2025-06-21 08:46 | Outpatient (CLI) | payer MEDICARE, SELFPAY ==
[2025-06-21 09:23] LABS: Hematocrit 39.3 % (36-46); Hemoglobin 13.1 g/dL (12.0-16.0); Mean Corpuscular HGB Conc 33.2 % (30-36); Mean Corpuscular Hemoglobin 27.5 PG (26-34); Mean Corpuscular Volume 82.6 fL (80-100); Platelet Count 352 X10^3/uL (150-400)
[2025-06-21 09:33] LABS: Hemoglobin A1C% w Est Avg Glu 6.4 % (4.0-6.0)
[2025-06-21 09:48] LABS: Alanine Aminotransferase 17 IU/L (<35); Albumin 4.5 g/dL (3.5-5.0); Albumin Globulin Ratio 1.5 (1.0-2.8); Alkaline Phosphatase 50 U/L (38-126); Blood Urea Nitrogen 27 mg/dL (7-17); Calcium 10.1 mg/dL (8.4-10.2); Carbon Dioxide 21 mmol/L (22-32); Chloride 107 mmol/L (98-107); Cholesterol 121 mg/dL (140-199); Estimated Glomerular Filt Rate > 60 mL/min (>60); Globulin 3.0 g/dL (1.7-4.1); Glucose 101 mg/dL (70-99); HDL Cholesterol 45 mg/dL (40-60); HEMOLYSIS < 15 (0-50); Potassium 4.4 mmol/L (3.4-5.1); Sodium 138 mmol/L (137-145); Total Protein 7.5 g/dL (6.3-8.2); Triglycerides 126 mg/dL (35-150)
[2025-06-21 10:20] LABS: TSH w/ Reflex to FT4 0.82 uIU/mL (0.47-4.68)
[2025-06-21 10:39] LABS: Vitamin B12 369 pg/mL (239-931)
[2025-06-23 15:41] LABS: Albumin 3.7 g/dL (2.9-4.4); Alpha-1-Globulin 0.2 g/dL (0.0-0.4); Alpha-2-Globulin 0.8 g/dL (0.4-1.0); Gamma Globulin 0.8 g/dL (0.4-1.8)
== END ==
PROVIDERS: PCP Family Medicine; Referring Provider Family Medicine; Visit Provider Family Medicine
DX: E11.9 Type 2 diabetes mellitus without complications (principal); E78.5 Hyperlipidemia, unspecified; G60.9 Hereditary and idiopathic neuropathy, unspecified; E78.1 Pure hyperglyceridemia; Z79.4 Long term (current) use of insulin
CPT/HCPCS: 80053; 80061; 82607; 83036; 84155; 84165; 84443; 85027

== ENCOUNTER → 2025-08-31 16:46 | Outpatient (CLI) | payer MEDICARE, SELFPAY ==
--- NOTE | 2025-08-31 16:48 | DI.MRI.S_ITS ---
PROCEDURE: MR LUMBAR SPINE WO CON INDICATIONS: foot drop with worsening incontinence TECHNIQUE: Noncontrast sagittal T1 spin echo and T2 fast echo, sagittal STIR, and T2 fast spin echo through the lumbar spine. In cases with scoliosis, additional coronal T2 fast spin echo may be performed. COMPARISON: [facility], CR, XR LUMBAR SPINE 2-3V, 07/01/2024, 16:29. FINDINGS: Image quality: Excellent. Alignment and Curvature: There is trace retrolisthesis of L3 on L4. Bone Marrow: Marrow is of normal overall signal. No acute vertebral body compression fractures. Spinal Cord: Conus medullaris terminates at the L1 level. Visualized cord demonstrates normal signal and size. Paraspinous Soft Tissues: No paravertebral masses. Discs: Multilevel [id number] disc desiccation most prominent at L3-4, L4-5. T12-L1: No disc bulge, spinal stenosis or foraminal narrowing. L1-L2: Minimal disc bulge without spinal stenosis. No foraminal narrowing. Facet and ligamentum flavum hypertrophy are present. L2-L3: Mild disc bulge without spinal stenosis. Moderate bilateral foraminal narrowing, left greater than right with facet and ligamentum flavum hypertrophy. L3-L4: Mild disc bulge with minimal spinal stenosis. Moderate to severe bilateral foraminal narrowing with facet and ligamentum flavum hypertrophy, left greater than right. L4-L5: Mild disc bulge including a right lateral component abutting the exiting nerve root. Moderate spinal stenosis. Severe right and moderate left foraminal narrowing with facet and ligamentum flavum hypertrophy. L5-S1: Mild disc bulge without spinal stenosis. Severe right and moderate left foraminal narrowing with nerve root compression of the exiting right L5 nerve root. Facet and ligamentum flavum hypertrophy are present. IMPRESSION: Multilevel degenerative changes most severe at L5-S1 with mild compression of the exiting right L5 nerve root. Dictated by: Lilo Ko M.D. on 09/01/2025 at 10:42 Approved by: Lilo Ko M.D. on 09/01/2025 at 10:48
== END ==
PROVIDERS: PCP Family Medicine; Referring Provider Family Medicine; Visit Provider Family Medicine
DX: M51.16 Intervertebral disc disorders with radiculopathy, lumbar region (principal); N32.81 Overactive bladder; G60.9 Hereditary and idiopathic neuropathy, unspecified; E11.9 Type 2 diabetes mellitus without complications; Z79.4 Long term (current) use of insulin; M21.379 Foot drop, unspecified foot; M51.369 Other intervertebral disc degeneration, lumbar region without mention of lumbar back pain or lower extremity pain; M48.061 Spinal stenosis, lumbar region without neurogenic claudication; M47.816 Spondylosis without myelopathy or radiculopathy, lumbar region; M46.06 Spinal enthesopathy, lumbar region; M51.379 Other intervertebral disc degeneration, lumbosacral region without mention of lumbar back pain or lower extremity pain; M48.07 Spinal stenosis, lumbosacral region; M47.817 Spondylosis without myelopathy or radiculopathy, lumbosacral region; M46.07 Spinal enthesopathy, lumbosacral region
CPT/HCPCS: 72148